=== PATIENT | male | born 1965 | race Caucasian/White ===

== ENCOUNTER → 2016-10-13 | Outpatient (CLI) | payer OTHER ==
--- NOTE | 2016-10-13 15:33 | KCIC ---
CT scan abdomen and pelvis without contrast 10/13/2016 CLINICAL HISTORY: Nausea and stomach pain for 15 days. TECHNIQUE: Unenhanced, contiguous, 5 mm axial sections were obtained through the abdomen and pelvis. One or more of the following individualized dose reduction techniques were utilized for this study: 1. Automated exposure control. 2. Adjustment of the mA and/or kV according to patient size. 3. Use of iterative reconstruction technique. FINDINGS: Images through the lung bases are within normal limits. The liver, spleen, pancreas, and adrenal glands are within normal limits. No renal or ureteral calculus is seen. There is no evidence of obstruction of either collecting system. The abdominal aorta tapers normally. The gallbladder is contracted. No free fluid or free air is seen within the abdomen. There is no evidence of bowel obstruction. Air and stool is seen throughout the colon. The appendix is not visualized. No inflammatory changes are seen surrounding the cecum. Images through the pelvis demonstrate the urinary bladder distended with urine. No free fluid is seen. Very mild S-shaped curvature of the thoracolumbar spine is seen. Degenerative changes are seen involving the lower thoracic and mid and lower lumbar spine. IMPRESSION: No acute abnormality is seen. Electronically signed by: Omar Duque MD (10/13/2016 3:29 PM) [id number]
== END | disposition home or self-care (01) ==
LOC: KCIC CT 13:53
PROVIDERS: ATTEND Family Medicine
DX: R10.9 Unspecified abdominal pain (principal)
CPT/HCPCS: 74176

== ENCOUNTER 2019-03-13 06:55 | Outpatient (CLI) | payer OTHER ==
[~2019-03-13] VITALS: Ht 175.3 cm; Wt 87.5 kg
[2019-03-13] VITALS (13 sets, daily range): BP systolic 124–171; BP diastolic 62–97
[2019-03-13 07:26] LABS: BASO # 0.1 x10^3/uL (0.0-0.2); BASO % 1 % (0-3); EOS # 0.3 x10^3/uL (0.0-0.7); EOS % 4 % (0-3); HEMATOCRIT 45.6 % (39.0-53.0); HEMOGLOBIN 15.4 g/dL (13.0-17.5); LYMPH # 1.9 x10^3/uL (1.0-4.8); LYMPH % 26 % (24-48); MEAN CORPUSCULAR HEMOGLOBIN 31 pg (25-35); MEAN CORPUSCULAR HGB CONC 34 g/dL (31-37); MEAN CORPUSCULAR VOLUME 90 fL (79-100); MONO # 0.3 x10^3/uL (0.0-1.1); MONO % 4 % (0-9); NEUT # 4.8 x10^3/uL (1.8-7.7); NEUT % 64 % (31-73); PLATELET COUNT 584 x10^3/uL (140-400); RED BLOOD COUNT 5.06 x10^6/uL (4.30-5.70); RED CELL DISTRIBUTION WIDTH 14.9 % (11.5-14.5); WHITE BLOOD COUNT 7.5 x10^3/uL (4.0-11.0)
[2019-03-13] MEDS ORDERED: MULT-121 PO (07:27)
[2019-03-13 07:44] LABS: PROTHROMBIN TIME PATIENT 12.9 SEC (11.7-14.0)
[2019-03-13] MEDS ORDERED: LIDOCAINE WITH 8.4% SOD BICARB 3 ML DISP.SYRIN. ONE (07:44)
[2019-03-13] MEDS ORDERED: LIDOCAINE WITH 8.4% SOD BICARB 3 ML DISP.SYRIN. IJ ONE ×2 (08:00→09:15)
[2019-03-13] MEDS ORDERED: MIDAZOLAM HCL/PF 2 MG/2 ML VIAL. IV ONE ×2 (08:00→09:15)
[2019-03-13] MEDS ORDERED: fentaNYL PF VIAL 100 MCG/2 ML VIAL IV ONE ×2 (08:00→09:15)
--- NOTE | 2019-03-13 09:29 | RAD ---
Procedure: CT-guided bone marrow aspiration and biopsy Clinical Indication: Adult male with thrombocytosis Sedation: Conscious sedation was administered with a total intraprocedural [id number] time of 10 minutes. The patient was monitored by a qualified independent observer throughout the time of sedation. Please refer to the medical record for exact doses of medications utilized to achieve moderate sedation. Antibiotics: None Fluoro Time: Not applicable Contrast: None Sterility: The procedure was performed in its entirety using appropriate elements of sterile technique. Consent: The procedure was explained in its entirety to the patient or the patients designated account retention representative by a member of the treatment team, including a discussion of the risks, benefits and commonly accepted alternatives to the procedure, as well as the expected consequences of no therapy whatsoever. Discussion of the risks included, but was not limited to, those that are most frequent and those that are rare but possibly severe or life-threatening, as well as the possibility of unforeseen complications. Technique and Findings: Following informed consent, the patient was prepped and draped in usual sterile fashion. Preliminary CT scan of the area of interest was performed. 1% Lidocaine was used to achieve local anesthesia. Under periodic CT surveillance, an 11-gauge needle was advanced through the cortex of the posterior superior iliac spine and 2 separate 2 mL marrow aspirates were obtained and preserved on site by the shipping and receiving assistant. A single 11-gauge core biopsy specimen was then obtained and preserved in formalin. The needle was then removed and hemostasis was achieved with manual compression. Complications: No immediate Impression: 1. CT-guided bone marrow aspiration and biopsy as described PQRS Compliance Statement: One or more of the following individualized dose reduction techniques were utilized for this examination: 1. Automated exposure control 2. Adjustment of the mA and/or kV according to patient size 3. Use of iterative reconstruction technique
--- NOTE | 2019-03-13 09:52 | PDOC ---
MODERATE SEDATION ASSESSMENT RISKS/ALTERNATIVES Risks/Alternatives Risks and alternatives of this type of sedation and procedure discussed with: RISK/ALTERNATIVES: Patient H & P ON CHART H & P H & P on chart and reviewed for co-morbid conditions and appropriate labs. H&P ON CHART: Yes STATUS PREG STATUS ASSESSED: Yes MEDS/ALLERGIES REVIEWED Meds/Allergies Reviewed Medications and Allergies including time and route of recently administered narcotics and sedatives. MEDS/ALLERGIES REVIEWED: Yes ASA RATING ASA RATING: II AIRWAY ASSESSMENT Airway Assessment Airway patency, oral function limitations, presence of caps, crowns, dentures, partials, and ability to extend neck assessed. AIRWAY ASSESSMENT: Yes MALLAMPATI SCORE MALLAMPATI SCORE: II PRE-SEDATION ASSESSMENT PRE-SEDATION ASSESSMENT: Yes JEAN PIERRE ALAS MD Mar 13, 2019 09:52
--- NOTE | 2019-03-13 09:53 | PDOC1 ---
History and Physical Date of Procedure Date of Admission History of Present Illness Reason for Visit thrombocytosis Past Medical History Past Medical History see nursing pre-op assessment Current Medications Current Medications Current Medications Lidocaine HCl (Buffered Lidocaine 1%) 3 ml STK-MED ONCE .ROUTE ; Start 03/13/19 at 07:44; Stop 03/13/19 at 07:44; Status DC Lidocaine HCl (Buffered Lidocaine 1%) 3 ml 1X ONCE IJ ; Start 03/13/19 at 08:00; Stop 03/13/19 at 08:06; Status DC Midazolam HCl (Versed) 2 mg 1X ONCE IV Last administered on 03/13/19at 09:10; Start 03/13/19 at 08:00; Stop 03/13/19 at 08:06; Status DC Fentanyl Citrate (Fentanyl 2ml Vial) 100 mcg 1X ONCE IV ; Start 03/13/19 at 08:00; Stop 03/13/19 at 08:06; Status DC Lidocaine HCl (Buffered Lidocaine 1%) 6 ml 1X ONCE IJ Last administered on 03/13/19at 09:10; Start 03/13/19 at 09:15; Stop 03/13/19 at 09:16; Status DC Midazolam HCl (Versed) 2 mg 1X ONCE IV ; Start 03/13/19 at 09:15; Stop 03/13/19 at 09:16; Status DC Fentanyl Citrate (Fentanyl 2ml Vial) 50 mcg 1X ONCE IV Last administered on 03/13/19at 09:10; Start 03/13/19 at 09:15; Stop 03/13/19 at 09:16; Status DC Active Scripts Active Reported Multiple Vitamins (Multivitamin) 1 Each Tablet 1 Tab PO DAILY 30 Days Allergies Allergies: Coded Allergies: No Known Drug Allergies (Unverified , 03/13/19) Physical Exam Vital Signs Vital Signs Date Time Temp Pulse Resp B/P (MAP) Pulse Ox O2 Delivery O2 Flow Rate FiO2 03/13/19 09:11 98 9 99 Nasal Cannula 2.0 03/13/19 07:45 98.4 155/80 (105) 98.4 Other see nursing pre-op assessment Assessment Assessment thrombocytosis Plan Plan CT Bone Marrow Biopsy JEAN PIERRE ALAS MD Mar 13, 2019 09:53
--- NOTE | 2019-03-13 09:54 | PDOC ---
BRIEF OPERATIVE NOTE Pre-Op Diagnosis thrombocytosis Post-Op Diagnosis same Procedure Performed CT Bone Marrow Biopsy Surgeon Randi Anesthesia Type: Conscious Sedation Specimens Obtained 2 x 3cc aspirates and 1 x 10g core Findings CT Bone Marrow Biopsy Complications none JEAN PIERRE ALAS MD Mar 13, 2019 09:54
--- NOTE | 2019-03-13 11:38 | NUR ---
Discharge Note: YAMILA MONSIVAIS Discharge instructions and discharge home medications reviewed with Patient and Spouse and a copy given. All questions have been answered and understanding verbalized. Patient ate breakfast without any difficulties. The following instructions and handouts were given: Moderate sedation and bone marrow biopsy care. Discontinued lines and drains: right forearm, dressing clean dry intact. Patient discharged to home with via wheelchair to private vehicle.
== END 2019-03-13 11:28 | disposition home or self-care (01) ==
LOC: INTRAD 06:55
PROVIDERS: ATTEND Internal Medicine Hematology & Oncology
DX: D47.3 Essential (hemorrhagic) thrombocythemia (principal)
CPT/HCPCS: 36415; 38222; 77012; 85025; 85610; 99152; J2250; J3010